=== PATIENT | female | born 1935 | race Asian ===

== ENCOUNTER → 2016-12-12 | Outpatient (CLI) | payer MEDICARE, OTHER ==
[~2016-12-12] MED LIST: AMLO-511 PO; METO-325 PO
== END | disposition home or self-care (01) ==
LOC: RADPV 14:58
PROVIDERS: ATTEND Internal Medicine
DX: I70.0 Atherosclerosis of aorta (principal)
CPT/HCPCS: 71020

== ENCOUNTER 2023-12-28 07:34 | Emergency (ER) | payer MEDICARE, OTHER ==
[~2023-12-28] VITALS: Ht 154.9 cm; Wt 44.5 kg
[~2023-12-28 07:34] MED LIST changes: +AMLO-257 PO; -AMLO-511 PO; -METO-325 PO; +METO-391 PO
[2023-12-28 07:44] VITALS: TEMP 98
[2023-12-28 11:03] VITALS: BP 134/88; PULSE 84; RESP 16
== END 2023-12-28 11:35 | disposition home or self-care (01) ==
LOC: EMS 07:45
DX: R07.89 Other chest pain (principal); I10 Essential (primary) hypertension; F41.9 Anxiety disorder, unspecified
CPT/HCPCS: 93005; 99283